=== PATIENT | male | born 1980 | race Caucasian/White ===

== ENCOUNTER 2019-12-02 08:47 | Emergency (ER) | payer SELFPAY ==
--- NOTE | 2019-12-02 09:59 | EDM.PDOC ---
ED HPI GENERAL MEDICAL PROBLEM - General Chief Complaint: Lower Extremity Injury/Pain Stated Complaint: INFECTED TOE Time Seen by Provider: 12/02/19 09:35 - History of Present Illness INITIAL COMMENTS - FREE TEXT/NARRATIVE: 39-year-old male presents the emergency room with left great toe redness and drainage. On the sixth of this month the patient had a medial partial nail resection due to ingrown nails he also had one done on the right that one is not bothering him yesterday he developed significant redness at the the base of the nail plate medial margin. He tried to drain it last night and got a small amount of exudative material out. Patient has not had any redness or streaking up his leg he has not had any fevers or chills. - Related Data Allergies Allergy/AdvReac Type Severity Reaction Status Date / Time No Known Allergies Allergy Verified 12/02/19 09:42 Past Medical History HEENT History: Reports: Impaired Vision Other HEENT History: Wears glasses - Infectious Disease History Infectious Disease History: Reports: Chicken Pox Social & Family History - Family History Family Medical History: Noncontributory - Tobacco Use Smoking Status *Q: Current Every Day Smoker Years of Tobacco use: 25 Packs/Tins Daily: 0.5 - Caffeine Use Caffeine Use: Reports: Coffee - Recreational Drug Use Recreational Drug Use: No Review of Systems - Review of Systems Review Of Systems: See Below Constitutional: Reports: No Symptoms. Denies: Chills, Diaphoresis, Fever ED EXAM, GENERAL - Physical Exam Exam: See Below General Appearance: Alert, No Apparent Distress Respiratory/Chest: No Respiratory Distress, Lungs Clear, Normal Breath Sounds Cardiovascular: Regular Rate, Rhythm, No Edema, No Murmur Extremities: Other (The patient has redness and mild swelling at the eponychial fold over the area where he had a partial nail resection. This area was gently pulled back to open up the fold and then with a little pressure a fair amount of exudative material came out followed by some bloody exudative material and then just blood drained small amounts. Patient noticed immediate relief from this.) Course - Vital Signs Last Recorded V/S: Last Vital Signs Temp 36.6 C 12/02/19 08:57 Pulse 98 12/02/19 08:57 Resp 16 12/02/19 08:57 BP 164/93 H 04/23/20 08:57 Pulse Ox Departure - Departure Time of Disposition: 09:59 Disposition: Home, Self-Care 01 Clinical Impression: Eponychia - Discharge Information Referrals: PCP,None [Primary Care Provider] - Additional Instructions: Return to the emergency room with any questions problems or worsening symptoms. Resume Epson salt soaks at least 4 times a day prior to doing this pullback on the skin like I showed you to open up the area. Continue the soaks for at least 1 week do longer if needed. Follow-up with your [employer] defence [employer] if needed. Sepsis Event Note - Evaluation Sepsis Screening Result: No Definite Risk - Focused Exam Vital Signs: Vital Signs Temp Pulse Resp BP 12/02/19 08:57 36.6 C 98 16 164/93 H Date Exam was Performed: 12/02/19 Time Exam was Performed: 09:52
== END 2019-12-02 10:09 | disposition home or self-care (01) ==
LOC: JD.ED 08:47
DX: Q84.6 Other congenital malformations of nails (principal); F17.210 Nicotine dependence, cigarettes, uncomplicated
CPT/HCPCS: 99282; 99283

== ENCOUNTER 2021-05-21 10:04 | Emergency (ER) | payer SELFPAY ==
--- NOTE | 2021-05-21 12:20 | EDM.PDOC ---
ED HPI GENERAL MEDICAL PROBLEM - General Chief Complaint: Respiratory Problem Stated Complaint: COUGH CONGESTION FEVER Time Seen by Provider: 05/21/21 10:15 Source of Information: Reports: Patient History Limitations: Reports: No Limitations - History of Present Illness INITIAL COMMENTS - FREE TEXT/NARRATIVE: The patient presents with a cough, congestion, and runny nose. This has been going on for a few days. His sone tested positive for COVID 19 last week. He was tested by the [facility] this morning and it was negative. He has no fever at this time. He has no chest pain, shortness of breath, abdominal pain, nausea or vomiting. He has no diarrhea. Onset: Gradual Duration: Day(s): Severity: Moderate Improves with: Reports: None Worsens with: Reports: None Associated Symptoms: Reports: Cough. Denies: Chest Pain, Fever/Chills, Headaches, Nausea/Vomiting, Shortness of Breath - Related Data Allergies Allergy/AdvReac Type Severity Reaction Status Date / Time No Known Allergies Allergy Verified 05/21/21 10:34 Home Meds: Home Meds . [No Known Home Meds] 05/21/21 [History] Past Medical History HEENT History: Reports: Impaired Vision Other HEENT History: Wears glasses - Infectious Disease History Infectious Disease History: Reports: Chicken Pox Social & Family History - Family History Family Medical History: No Pertinent Family History - Tobacco Use Tobacco Use Status *Q: Current Every Day Tobacco User Years of Tobacco use: 25 Packs/Tins Daily: 0.5 - Caffeine Use Caffeine Use: Reports: Coffee - Recreational Drug Use Recreational Drug Use: No ED ROS GENERAL - Review of Systems Review Of Systems: See Below Constitutional: Reports: No Symptoms HEENT: Reports: Other (congestion) Respiratory: Reports: Cough. Denies: Shortness of Breath Cardiovascular: Reports: No Symptoms Endocrine: Reports: No Symptoms GI/Abdominal: Reports: No Symptoms : Reports: No Symptoms Musculoskeletal: Reports: No Symptoms ED EXAM, GENERAL - Physical Exam Exam: See Below Exam Limited By: No Limitations General Appearance: Alert, No Apparent Distress Ears: Normal External Exam Nose: Normal Inspection Throat/Mouth: Normal Inspection Head: Atraumatic, Normocephalic Neck: Normal Inspection Respiratory/Chest: No Respiratory Distress, Lungs Clear, Normal Breath Sounds Cardiovascular: Regular Rate, Rhythm, No Edema, No Murmur GI/Abdominal: Soft, Non-Tender, No Organomegaly, No Mass Back Exam: Normal Inspection Extremities: Normal Inspection Course - Vital Signs Last Recorded V/S: Last Vital Signs Temp 98 F 05/21/21 10:29 Pulse 98 05/21/21 10:29 Resp 14 05/21/21 10:29 BP 159/77 H 05/21/21 10:29 Pulse Ox 95 05/21/21 10:29 - Orders/Labs/Meds Labs: Laboratory Tests 05/21/21 Range/Units 10:20 SARS-CoV-2 RNA ([facility]) Negative (NEGATIVE) - Re-Assessments/Exams Free Text/Narrative Re-Assessment/Exam: 05/21/21 12:19 I ordered a COVID 19 and influenza test. The COVID 19 was negative. Departure - Departure Time of Disposition: 12:35 Disposition: Home, Self-Care 01 Condition: Good Clinical Impression: Viral URI with cough - Discharge Information *PRESCRIPTION DRUG MONITORING PROGRAM REVIEWED*: Not Applicable *COPY OF PRESCRIPTION DRUG MONITORING REPORT IN PATIENT MIN: Not Applicable Referrals: PCP,None [Primary Care Provider] - Forms: ED Department Discharge Additional Instructions: Drink plenty of fluids. Take tylenol or motrin as needed for fever. Try any of the over the counter cold medicines for the cough. Follow up with your provider. Please return if you are worse. Sepsis Event Note (ED) - Evaluation Sepsis Screening Result: No Definite Risk - Focused Exam Vital Signs: Vital Signs Temp Pulse Resp BP Pulse Ox 05/21/21 10:29 98 F 98 14 159/77 H 95
== END 2021-05-21 12:44 | disposition home or self-care (01) ==
LOC: JD.ED 10:04
DX: J06.9 Acute upper respiratory infection, unspecified (principal); Z72.0 Tobacco use; Z20.822 Contact with and (suspected) exposure to COVID-19
CPT/HCPCS: 87804; 99283; U0002

== ENCOUNTER 2023-04-18 06:14 | Emergency (ER) | payer BC | END 2023-04-18 08:20 | disposition home or self-care (01) | LOC: JD.ED 06:14 | DX: S81.801A Unspecified open wound, right lower leg, initial encounter (principal); E66.9 Obesity, unspecified; F17.210 Nicotine dependence, cigarettes, uncomplicated; Z68.41 Body mass index [BMI] 40.0-44.9, adult; X19.XXXA Contact with other heat and hot substances, initial encounter | CPT/HCPCS: 99283 ==

== ENCOUNTER 2024-04-04 06:28 | Emergency (ER) | payer BC ==
[2024-04-04] MEDS: Sulfamethoxazole/Trimethoprim 800-160 MG Tab PO ONE (07:28)
== END 2024-04-04 07:35 ==
LOC: JD.ED 06:28
DX: L72.3 Sebaceous cyst (principal); E66.9 Obesity, unspecified; F17.210 Nicotine dependence, cigarettes, uncomplicated; Z68.41 Body mass index [BMI] 40.0-44.9, adult
CPT/HCPCS: 99283; A9270-GY